=== PATIENT | female | born 1985 | race Caucasian/White ===

== ENCOUNTER 2017-07-17 12:01 | Emergency (ER) | payer OTHER ==
[2017-07-17] MEDS ORDERED: Silver Sulfadiazine 1% Cream 50 GM JAR ONE (12:19)
[2017-07-17] MEDS ORDERED: Bacitracin Zinc 1 Packet ONE (13:14)
--- NOTE | 2017-07-17 13:37 | RAD ---
THREE VIEWS LEFT RING FINGER: Indication: Finger injury, patient cut her finger on her pocket knife. FINDINGS: No acute fracture or subluxation is evident. No radiopaque foreign body is evident. IMPRESSION: No acute fracture, subluxation, or radiopaque foreign bodies. POS: [facility]
== END 2017-07-17 14:00 | disposition home or self-care (01) ==
LOC: BURERS 12:01
DX: S61.205A Unspecified open wound of left ring finger without damage to nail, initial encounter (principal); J45.909 Unspecified asthma, uncomplicated; W26.0XXA Contact with knife, initial encounter
CPT/HCPCS: 64450

== ENCOUNTER 2018-01-25 17:31 | Outpatient (CLI) | payer OTHER ==
--- NOTE | 2018-01-25 20:11 | RAD ---
LEFT INDEX FINGER THREE VIEWS: 01/25/2018 FINDINGS: No fracture, dislocation, or joint abnormality is seen. IMPRESSION: No acute findings. POS: HOME
== END 2018-01-25 17:32 | disposition home or self-care (01) ==
LOC: BURRAD 17:31
PROVIDERS: ATTEND Family Medicine
DX: M79.645 Pain in left finger(s) (principal)

== ENCOUNTER 2019-11-01 20:47 | Emergency (ER) | payer OTHER ==
[2019-11-01 21:14] LABS: Bilirubin Negative (Negative); Blood, Urine Negative (Negative); Clarity Clear (Clear); Glucose, Urine (Dipstick) Negative (Negative); Leukocyte Negative (Negative); Nitrite Negative (Negative); Protein, Urine (Dipstick) Negative (Neg-Trace); Urobilinogen 0.2 mg/dL (Less than 2)
[2019-11-01] MEDS ORDERED: Ketorolac Tromethamine 60 MG/2 ML VIAL ONE (21:33)
[2019-11-01 21:35] LABS: Pregnancy Test - Urine (BHCG) Negative (Negative); Pregu Control Background? CLEAR/WHITE (CLR/WHITE); Pregu Control Bar Appear? YES (CONTROL BAR)
[2019-11-01 21:48] LABS: #Basophils 0.1 thou/uL (0.0-0.2); #Eosinphils 0.1 thou/uL (0.0-0.7); #Lymphocytes 3.2 thou/uL (1.20-3.40); #Monocytes 0.9 thou/uL (0.11-0.59); #Neutrophils 7.4 thou/uL (1.40-6.50); %Basophils 0.9 % (0.0-1.0); %Lymphocytes 27.2 % (21.0-51.0); %Monocytes 7.3 % (0.0-10.0); %Neutrophils 63.6 % (42.0-75.0); Mean Corpuscular HGB CONC 33.7 g/dL (32.0-36.0); Mean Corpuscular Hemoglobin 30.9 pg (27.0-31.0); Mean Corpuscular Volume 91.6 fL (78.0-98.0); Mean Platelet Volume 10.3 fL (7.4-10.4); Platelet Count 217 thou/uL (130-400); RBC Distribution Width 10.8 % (11.5-14.5); Red Blood Cell (RBC) Count 4.52 mill/uL (4.20-5.40); White Blood Cell (WBC) Count 11.6 thou/uL (4.8-10.8)
[2019-11-01 21:59] LABS: ALT (SGPT) 22 U/L (8-55); AST (SGOT) 19 U/L (5-34); Albumin 3.9 g/dL (3.5-5.0); Alkaline Phosphatase 94 U/L (40-110); Anion Gap 11 mmol/L (10-20); BUN (Urea Nitrogen) 8 mg/dL (7.0-18.7); Bilirubin, Total 0.2 mg/dL (0.2-1.2); Calc. Creatinine Clearance 0 mL/min (70-130); Carbon Dioxide 24 mmol/L (22-29); Chloride 108 mmol/L (98-107); Estimated GFR-MDRD Greater than 90; Globulin 2.4 g/dL (2.4-3.5); Glucose 85 mg/dL (70-105); Lipase 33 U/L (8-78); Protein, Total 6.3 g/dL (6.0-8.3); Sodium 139 mmol/L (136-145)
== END 2019-11-01 21:45 | disposition short-term general hospital (02) ==
LOC: BURERS 20:47
DX: R10.31 Right lower quadrant pain (principal); J45.909 Unspecified asthma, uncomplicated
CPT/HCPCS: 80053; 81003; 81025; 83690; 85025; 96372; 99284; J1885

== ENCOUNTER 2020-05-18 08:46 | Emergency (ER) | payer OTHER ==
[2020-05-18 09:33] LABS: Bilirubin Negative (Negative); Blood, Urine Negative (Negative); Clarity Clear (Clear); Glucose, Urine (Dipstick) Negative (Negative); Ketone, Urine Negative (Negative); Leukocyte Negative (Negative); Nitrite Negative (Negative); Protein, Urine (Dipstick) Negative (Neg-Trace); Urobilinogen 0.2 mg/dL (Less than 2); pH, Urine 6.5 (5.0-9.0)
[2020-05-18] MEDS ORDERED: Ketorolac Tromethamine 30 MG/ML VIAL ONE (09:39)
[2020-05-18] MEDS ORDERED: HYDROcodone/Acetaminophen 5/325 mg Tablet ONE (10:02)
[2020-05-18] MEDS ORDERED: Ondansetron ODT 4 MG TAB ONE (10:03)
--- NOTE | 2020-05-18 12:30 | CT ---
CT ABDOMEN AND PELVIS WITHOUT CONTRAST: DATE: 05/18/2020. COMPARISON: Comparison is made with the 11/02/2019 study. FINDINGS: The lung bases are clear. The liver, spleen, pancreas, adrenal glands, kidneys, and abdominal aorta were unremarkable in appearance within the limitations of a noncontrast study. Prior gastric surgery is noted as well as a prior cholecystectomy. There is no sign of renal calculi, ureteral calculi, or urinary tract obstruction. The bowel shows no dilation or wall thickening. The appendix appears normal. CT of the pelvis shows a rounded ovoid structure in the right adnexal region that may be an ovarian c yst. It is about 3-4 cm in size and is not definitely bowel. No free fluid or inflammatory changes are seen in the pelvis. IMPRESSION: Possible right adnexal cyst. Ultrasound recommended for further evaluation. Preliminary report called to Dr. Hall at 1025 on 05/18/2020. CODE CR POS: HOME
== END 2020-05-18 11:16 | disposition home or self-care (01) ==
LOC: BURERS 08:46
DX: N83.201 Unspecified ovarian cyst, right side (principal); J45.909 Unspecified asthma, uncomplicated
CPT/HCPCS: 74176; 81003; 87086; 96372; J1885; Q0162

== ENCOUNTER 2020-07-27 13:41 | Emergency (ER) | payer OTHER | END 2020-07-27 14:31 | disposition home or self-care (01) | LOC: BURERS 13:41 | DX: S46.912A Strain of unspecified muscle, fascia and tendon at shoulder and upper arm level, left arm, initial encounter (principal); S50.812A Abrasion of left forearm, initial encounter; V89.2XXA Person injured in unspecified motor-vehicle accident, traffic, initial encounter | CPT/HCPCS: 99283 ==

== ENCOUNTER 2021-02-28 13:07 | Observation (INO) | payer OTHER ==
[2021-02-28 14:32] LABS: #Lymphocytes 1.2 thou/uL (1.20-3.40); #Monocytes 0.4 thou/uL (0.11-0.59); #Neutrophils 2.1 thou/uL (1.40-6.50); %Basophils 0.9 % (0.0-1.0); %Eosinophils 0.1 % (0.0-10.0); %Lymphocytes 33.4 % (21.0-51.0); %Monocytes 9.4 % (0.0-10.0); %Neutrophils 56.2 % (42.0-75.0); Hemoglobin 16.5 g/dL (12.0-16.0); Mean Corpuscular HGB CONC 33.3 g/dL (32.0-36.0); Mean Corpuscular Hemoglobin 30.5 pg (27.0-31.0); Mean Corpuscular Volume 91.7 fL (78.0-98.0); Mean Platelet Volume 10.5 fL (7.4-10.4); Platelet Count 121 thou/uL (130-400); Red Blood Cell (RBC) Count 5.39 mill/uL (4.20-5.40); White Blood Cell (WBC) Count 3.7 thou/uL (4.8-10.8)
[2021-02-28 14:51] LABS: ALT (SGPT) 35 U/L (8-55); AST (SGOT) 35 U/L (5-34); Albumin 3.7 g/dL (3.5-5.0); Alkaline Phosphatase 90 U/L (40-110); Anion Gap 13 mmol/L (10-20); BUN (Urea Nitrogen) 8 mg/dL (7.0-18.7); Bilirubin, Total 0.4 mg/dL (0.2-1.2); Calc. Creatinine Clearance 0 mL/min (70-130); Calcium 8.1 mg/dL (7.8-10.44); Carbon Dioxide 24 mmol/L (22-29); Chloride 104 mmol/L (98-107); Globulin 2.9 g/dL (2.4-3.5); Glucose 93 mg/dL (70-105); Potassium 4.1 mmol/L (3.5-5.1); Protein, Total 6.6 g/dL (6.0-8.3); Sodium 137 mmol/L (136-145)
[2021-02-28] MEDS ORDERED: Azithromycin 500 MG VIAL ONE (16:25)
[2021-02-28 17:00] LABS: SARS-CoV-2 NAA Rapid Test DETECTED (NotDetected)
[2021-02-28] MEDS ORDERED: Ondansetron ODT 4 MG TAB SL PRN (19:30)
[2021-02-28] MEDS ORDERED: Ondansetron PF 4 MG/2 ML Vial IVP PRN (19:30)
[2021-02-28] MEDS ORDERED: Acetaminophen 325 MG TAB PO PRN (22:28)
[2021-02-28 22:46] VITALS: BMI 29.0
[2021-03-01 06:21] LABS: #Lymphocytes 1.6 thou/uL (1.20-3.40); #Monocytes 0.3 thou/uL (0.11-0.59); #Neutrophils 1.7 thou/uL (1.40-6.50); %Basophils 0.8 % (0.0-1.0); %Eosinophils 0.5 % (0.0-10.0); %Lymphocytes 43.7 % (21.0-51.0); %Monocytes 8.4 % (0.0-10.0); %Neutrophils 46.5 % (42.0-75.0); Hemoglobin 14.1 g/dL (12.0-16.0); Mean Corpuscular Hemoglobin 30.4 pg (27.0-31.0); Mean Corpuscular Volume 92.2 fL (78.0-98.0); Mean Platelet Volume 9.7 fL (7.4-10.4); Platelet Count 104 thou/uL (130-400); Platelet Morphology Comment Appears Decreased; RBC Distribution Width 11.3 % (11.5-14.5); Red Blood Cell (RBC) Count 4.64 mill/uL (4.20-5.40); White Blood Cell (WBC) Count 3.6 thou/uL (4.8-10.8)
[2021-03-01 06:23] LABS: ALT (SGPT) 31 U/L (8-55); AST (SGOT) 34 U/L (5-34); Albumin 3.3 g/dL (3.5-5.0); Alkaline Phosphatase 88 U/L (40-110); Anion Gap 11 mmol/L (10-20); BUN (Urea Nitrogen) 7 mg/dL (7.0-18.7); Bilirubin, Total 0.4 mg/dL (0.2-1.2); Calc. Creatinine Clearance 141 mL/min (70-130); Calcium 7.6 mg/dL (7.8-10.44); Carbon Dioxide 27 mmol/L (22-29); Chloride 105 mmol/L (98-107); Globulin 2.6 g/dL (2.4-3.5); Glucose 87 mg/dL (70-105); Potassium 3.9 mmol/L (3.5-5.1); Protein, Total 5.9 g/dL (6.0-8.3); Sodium 139 mmol/L (136-145)
[2021-03-01 06:30] LABS: MDiff Complete? YES
[2021-03-01] MEDS ORDERED: Dexamethasone 4 MG TAB PO SCH (08:00)
[2021-03-01] MEDS ORDERED: Sodium Chloride 0.9% 500 ML IV SCH (12:15)
[2021-03-01 13:33] VITALS: BP 105/66
[2021-03-01 15:57] VITALS: TEMP 98.8
[2021-03-01] MEDS ORDERED: Azithromycin 500 MG in Sodium Chloride 0.9% 250 ML 250 ML IVPB SCH (16:00)
== END 2021-03-01 14:45 | disposition home or self-care (01) ==
LOC: BURERS 13:07 → BURMED 17:44
PROVIDERS: ADMIT Family Medicine; ATTEND Family Medicine
DX: U07.1 COVID-19 (principal); J12.82 Pneumonia due to coronavirus disease 2019; E86.0 Dehydration; Z88.2 Allergy status to sulfonamides; Z88.5 Allergy status to narcotic agent; Z91.048 Other nonmedicinal substance allergy status
CPT/HCPCS: 0240U; 36415; 71045; 80053; 83880; 84484; 85025; 87040; 93005; 96365; G0378; J0456; J7030; J8540

== ENCOUNTER 2021-11-26 12:31 | Emergency (ER) | payer BC, OTHER ==
[2021-11-26] MEDS ORDERED: Acetaminophen 500 MG TAB ONE (12:50)
== END 2021-11-26 13:27 | disposition home or self-care (01) ==
LOC: BURERS 12:31
DX: T60.91XA Toxic effect of unspecified pesticide, accidental (unintentional), initial encounter (principal); G43.909 Migraine, unspecified, not intractable, without status migrainosus
CPT/HCPCS: 71046; 93005